=== PATIENT | male | born 1955 | race Caucasian/White ===

== ENCOUNTER 2025-01-21 23:18 | Emergency (ER) | payer MEDICARE, OTHER ==
[~2025-01-21] VITALS: Ht 167.6 cm; Wt 93.2 kg
[~2025-01-21 23:18] MED LIST: APIX5TAB PO; ATOR20TA PO; DOCU-385 PO; FURO20TA5 PO; LOSA-382 PO; SIME80TA82 PO; SPIR50TA27 PO; TAMS0.4C94 PO
[2025-01-21 23:19] VITALS: TEMP 98.7
[2025-01-22 00:14] LABS: PLATELET COUNT (AUTO) 141 K/uL (150-450); RED BLOOD CELL COUNT(AUTO) 4.21 MIL/uL (4.50-5.90); RED CELL DISTRIBUTION WIDTH 17.2 % (11.5-14.5); WHITE BLOOD COUNT (AUTO) 4.6 K/uL (4.5-11.0)
[2025-01-22 00:24] LABS: CALCIUM, TOTAL 8.0 mg/dL (8.8-10.5); CREATININE 1.51 mg/dL (0.60-1.30); GLOMERULAR FILTR. RATE CALC 46 mL/min (>60); GLUCOSE,RANDOM 93 mg/dL (70-110); SODIUM SERUM 139 mmol/L (136-145); UREA NITROGEN, BLOOD 19 mg/dL (7-18)
[2025-01-22 00:29] LABS: CREATINE KINASE, TOTAL ONLY 43 U/L (39-308)
[2025-01-22 00:32] LABS: TROPONIN I-HIGH SENSITIVITY 20 ng/L (<76)
[2025-01-22 01:30] VITALS: BP 136/68; PULSE 78; RESP 14; O2SAT 99
== END 2025-01-22 03:33 | disposition home or self-care (01) ==
LOC: EMS 23:18
DX: J44.9 Chronic obstructive pulmonary disease, unspecified (principal); I11.0 Hypertensive heart disease with heart failure; I50.9 Heart failure, unspecified; E78.00 Pure hypercholesterolemia, unspecified; F12.90 Cannabis use, unspecified, uncomplicated; F17.210 Nicotine dependence, cigarettes, uncomplicated; Z90.49 Acquired absence of other specified parts of digestive tract; Z98.890 Other specified postprocedural states; Z79.01 Long term (current) use of anticoagulants; Z99.81 Dependence on supplemental oxygen; Z79.899 Other long term (current) drug therapy
CPT/HCPCS: 71045; 80048; 82550; 83880; 84484; 85025; 85379; 93005; 99285; 36415-L1; 36415-TC

== ENCOUNTER 2025-03-03 15:26 | Emergency (ER) | payer MEDICARE, OTHER ==
[~2025-03-03] VITALS: Ht 167.6 cm; Wt 98.1 kg
[2025-03-03 16:30] LABS: PLATELET COUNT (AUTO) 125 K/uL (150-450); RED BLOOD CELL COUNT(AUTO) 4.53 MIL/uL (4.50-5.90); RED CELL DISTRIBUTION WIDTH 17.4 % (11.5-14.5); WHITE BLOOD COUNT (AUTO) 4.1 K/uL (4.5-11.0)
[2025-03-03 16:35] LABS: CALCIUM, TOTAL 8.2 mg/dL (8.8-10.5); CREATININE 1.41 mg/dL (0.60-1.30); GLOMERULAR FILTR. RATE CALC 50 mL/min (>60); GLUCOSE,RANDOM 84 mg/dL (70-110); SODIUM SERUM 139 mmol/L (136-145); UREA NITROGEN, BLOOD 22 mg/dL (7-18)
[2025-03-03 16:44] LABS: TROPONIN I-HIGH SENSITIVITY 33 ng/L (<76)
[2025-03-03 19:27] VITALS: BP 133/71; PULSE 75; RESP 18; TEMP 97.3; O2SAT 95
== END 2025-03-03 20:05 | disposition home or self-care (01) ==
LOC: EMS 15:26
DX: J44.1 Chronic obstructive pulmonary disease with (acute) exacerbation (principal); E78.00 Pure hypercholesterolemia, unspecified; I11.0 Hypertensive heart disease with heart failure; I50.9 Heart failure, unspecified; I48.20 Chronic atrial fibrillation, unspecified; F12.90 Cannabis use, unspecified, uncomplicated; F17.210 Nicotine dependence, cigarettes, uncomplicated; Z98.890 Other specified postprocedural states; Z90.49 Acquired absence of other specified parts of digestive tract; Z99.81 Dependence on supplemental oxygen; Z79.01 Long term (current) use of anticoagulants; Z79.899 Other long term (current) drug therapy
CPT/HCPCS: 71045; 80048; 82962; 83880; 84484; 85025; 93005; 99285; 36415-L1; 36415-TC